=== PATIENT | female | born 1980 | race Caucasian/White ===

== ENCOUNTER 2017-10-14 13:25 | Emergency (ER) | payer BC ==
[2017-10-14 13:46] VITALS: BP 120/67
--- NOTE | 2017-10-14 13:56 | ED Physician Documentation ---
General Adult - HISTORIAN Historian: patient - HPI Stated Complaint: Cough/Aches Chief Complaint: Cough/ Upper Respiratory Additional Information: Patient has had some URI symptoms 6 days ago. Seemed to be getting better then started to have coughing fits. Has been slightly productive of yellow phlegm , no blood noted. Feels a burning sensation in chest. Has started to have some body aches. Feels like she has been running a fever. No lung problems. Further Comments: no - ROS CONST: denies: fever, chills CVS/RESP: chest pain, cough GI/: denies: abdominal pain, vomiting, nausea, diarrhea MS/SKIN/LYMPH: none NEURO/PSYCH: denies: headache - PAST HX Past History: other (depression) Allergies/Adverse Reactions: Allergies Allergy/AdvReac Type Severity Reaction Status Date / Time amoxicillin Allergy Rash Verified 10/14/17 13:46 cephalexin monohydrate Allergy Rash Verified 10/14/17 13:46 [From Keflex] ciprofloxacin [From Cipro] Allergy Rash Verified 10/14/17 13:46 ciprofloxacin HCl Allergy Rash Verified 10/14/17 13:46 [From Cipro] penicillin G Allergy Verified 10/14/17 13:46 promethazine HCl Allergy Verified 10/14/17 13:46 [From Phenergan] Home Medications: Ambulatory Orders Medication Instructions Recorded Desvenlafaxine Succinate [Pristiq 100 mg PO DAILY u2 05/26/15 Er] Ranitidine HCl [Zantac] 150 mg PO BID u2 05/26/15 Clonazepam 0.5 mg PO PRN PRN 30 Days #90 09/17/17 Oseltamivir Phosphate [Tamiflu] 75 mg PO BID #10 capsule 10/14/17 - SOCIAL HX Smoking History: greater than 1 pack/day Alcohol Use: none Drug Use: none - FAMILY HX Family History: No - VITAL SIGNS Vital Signs: Vital Signs Temp Pulse Resp BP Pulse Ox 96.7 F L 89 19 120/67 95 10/14/17 13:30 10/14/17 13:30 10/14/17 13:30 10/14/17 13:30 10/14/17 13:30 General Adult Physical Exam - PHYSICAL EXAM GENERAL APPEARANCE: no distress EENT: eye inspection normal, ENT inspection normal, pharynx normal, no signs of dehydration NECK: normal inspection, thyroid normal, supple. No: lymphadenopathy, stiff neck RESPIRATORY: no resp distress, chest non-tender, breath sounds normal. No: wheezes, rales CVS: reg rate & rhythm, heart sounds normal, equal pulses, no murmur, no gallop ABDOMEN: soft, no organomegaly SKIN: warm/dry, normal color EXTREMITIES: non-tender NEURO: oriented X3 Discharge Clincal Impression: Influenza B Referrals: Primary Doctor,No [Primary Care Provider] - 2 Days Additional Instructions: Take Tamiflu as directed. Drink a lot of fluids. Get plenty of rest. Cover your mouth when coughing. Have person in your household to wash their hands frequently. Condition: Stable Disposition: 01 HOME, SELF-CARE Palliative/Comfort Care: Palliative Care Decision to Admit: NO Date of Decison to Admit: 10/14/17 Decision Time: 14:02
== END 2017-10-14 14:12 | disposition home or self-care (01) ==
LOC: ED 13:25
DX: J11.1 Influenza due to unidentified influenza virus with other respiratory manifestations (principal); F17.210 Nicotine dependence, cigarettes, uncomplicated
CPT/HCPCS: 87400; 99282

== ENCOUNTER 2017-10-25 11:59 | Emergency (ER) | payer BC ==
[2017-10-25 12:14] VITALS: BP 109/66
--- NOTE | 2017-10-25 12:20 | ED Physician Documentation ---
General Adult - HISTORIAN Historian: patient - HPI Stated Complaint: Diarrhea Chief Complaint: Nausea,Vomiting,Diarrhea Onset: days ago (3) Timing: still present Severity: mild Further Comments: yes (states she started to have abdominal cramps and diarrhea since midnight . She has had Tamiflu and Azithromycin in last week . She states she had the diarrhea (which is not unusal she feels she has IBS) but she had "straight blood stool" x 1 .) Last known Well Code/Unknown Code: Unknown - ROS CONST: fever, recent illness MS/SKIN/LYMPH: denies: rash NEURO/PSYCH: denies: headache, fainting, dizziness - PAST HX Past History: none Surgeries/Procedures: none Immunizations: UTD Allergies/Adverse Reactions: Allergies Allergy/AdvReac Type Severity Reaction Status Date / Time amoxicillin Allergy Rash Verified 10/14/17 13:46 cephalexin monohydrate Allergy Rash Verified 10/14/17 13:46 [From Keflex] ciprofloxacin [From Cipro] Allergy Rash Verified 10/14/17 13:46 ciprofloxacin HCl Allergy Rash Verified 10/14/17 13:46 [From Cipro] codeine Allergy Verified 10/25/17 12:14 erythromycin base Allergy Verified 10/25/17 12:14 penicillin G Allergy Verified 10/14/17 13:46 promethazine HCl Allergy Verified 10/14/17 13:46 [From Phenergan] Home Medications: Ambulatory Orders Medication Instructions Recorded Azithromycin [Zithromax] 250 mg PO DAILY 10/25/17 Benzonatate [Tessalon Perles] 100 mg PO PRN PRN 10/25/17 Clonazepam [Clonazepam] 1 mg PO PRN PRN 10/25/17 Desvenlafaxine [Khedezla] 100 mg PO DAILY 10/25/17 Oseltamivir Phosphate [Tamiflu] 75 mg PO DAILY 10/25/17 - SOCIAL HX Smoking History: cigarettes Alcohol Use: none Drug Use: none - FAMILY HX Family History: No - VITAL SIGNS Vital Signs: Vital Signs Temp Pulse Resp BP Pulse Ox 97.1 F L 70 18 109/66 96 10/25/17 11:59 10/25/17 11:59 10/25/17 11:59 10/25/17 11:59 10/25/17 11:59 - REVIEWED ASSESSMENTS Nursing Assessment Reviewed: Yes Vitals Reviewed: Yes General Adult Physical Exam - PHYSICAL EXAM GENERAL APPEARANCE: no distress EENT: eye inspection normal NECK: normal inspection RESPIRATORY: no resp distress, chest non-tender, breath sounds normal CVS: reg rate & rhythm, heart sounds normal, equal pulses, no murmur ABDOMEN: soft, normal bowel sounds, no distension, non-tender BACK: normal inspection SKIN: warm/dry, normal color EXTREMITIES: non-tender, normal range of motion NEURO: oriented X3, CN's nml as tested, motor nml, sensation nml Discharge Clincal Impression: Diarrhea Qualifiers: Diarrhea type: unspecified type Qualified Code(s): R19.7 - Diarrhea, unspecified Referrals: Primary Doctor,No [Primary Care Provider] - 2 Days Comments: stool sample kit sent home Increase fluids Monitor stool Return to ER or PCP for any concerns Zofran 4 mg every 8 hours as needed for nausea Condition: Stable Decision to Admit: NO Date of Decison to Admit: 10/25/17 Decision Time: 12:29
== END 2017-10-25 12:40 ==
LOC: ED 11:59
DX: R19.7 Diarrhea, unspecified (principal)
CPT/HCPCS: 99282

== ENCOUNTER 2017-10-28 10:02 | Outpatient (CLI) | payer BC ==
[2017-10-28 10:15] LABS: BASOPHILS % 0.5 (0.0-1.5); EOSINOPHILS % 1.6 % (0.0-6.8); MEAN CORPUSCULAR HEMOGLOBIN 25.9 pg (28.0-34.0); MEAN CORPUSCULAR VOLUME 86.3 fl (80.0-100.0); MONOCYTES % 3.7 % (0.0-11.0); NEUTROPHILS # 6.1 # k/uL (1.4-7.7)
[2017-10-28 10:46] LABS: eGFR (African) > 60; eGFR (Non-African) > 60
== END 2017-10-28 10:03 ==
LOC: LAB 10:02
PROVIDERS: ATTEND Physician Assistant
DX: K92.1 Melena (principal); R19.7 Diarrhea, unspecified; R63.4 Abnormal weight loss
CPT/HCPCS: 36415; 80053; 85025; 87177; 87329; 87493

== ENCOUNTER 2017-11-20 08:51 | Outpatient (CLI) | payer BC | END 2017-11-20 08:52 | LOC: OUT 08:51 | PROVIDERS: ATTEND Colon & Rectal Surgery | DX: K21.9 Gastro-esophageal reflux disease without esophagitis (principal); F41.8 Other specified anxiety disorders | CPT/HCPCS: 99213 ==

== ENCOUNTER 2018-06-22 08:04 | Emergency (ER) | payer BC, OTHER ==
[2018-06-22 08:28] VITALS: BP 104/81
--- NOTE | 2018-06-22 08:38 | ED Physician Documentation ---
General Adult - HISTORIAN Historian: patient - HPI Stated Complaint: right facial abcess Chief Complaint: General Adult Additional Information: "Always" has a knot on the right side of her face, but for two days it has gotten larger and sorer with some redness. She is afraid of eye involvement. She also has "always present" sinus congestion that has been worse for a week with a wet cough and green sputum. Took some left over clindamycin for two days w/o relief. Post nasal drip. ContiNues to smoke 1/2 PPD for 20 years. No other modifying factors or associated signs. - ROS CONST: no problems - PAST HX Past History: other (chronic sinusitis) Allergies/Adverse Reactions: Allergies Allergy/AdvReac Type Severity Reaction Status Date / Time amoxicillin Allergy Rash Verified 10/14/17 13:46 cephalexin monohydrate Allergy Rash Verified 10/14/17 13:46 [From Keflex] ciprofloxacin [From Cipro] Allergy Rash Verified 10/14/17 13:46 ciprofloxacin HCl Allergy Rash Verified 10/14/17 13:46 [From Cipro] codeine Allergy Verified 10/25/17 12:14 erythromycin base Allergy Verified 10/25/17 12:14 penicillin G Allergy Verified 10/14/17 13:46 promethazine HCl Allergy Verified 10/14/17 13:46 [From Phenergan] Home Medications: Ambulatory Orders Medication Instructions Recorded Clonazepam 1 mg PO PRN PRN 10/25/17 Azithromycin [Zithromax] 250 mg PO DAILY #6 tablet 06/22/18 Desvenlafaxine Fumarate 100 mg PO DAILY 06/22/18 [Desvenlafaxine Fumarate ER] Dicyclomine HCl 10 mg PO TID PRN 06/22/18 Esomeprazole Magnesium [Nexium] 40 mg PO BID 06/22/18 Loratadine [Claritin] 10 mg PO DAILY #30 tablet 06/22/18 predniSONE [Deltasone] 20 mg PO QD #7 tablet 06/22/18 - SOCIAL HX Smoking History: cigarettes - FAMILY HX Family History: No - VITAL SIGNS Vital Signs: Vital Signs Temp Pulse Resp BP Pulse Ox 98.3 F 85 16 104/81 98 06/22/18 08:25 06/22/18 08:25 06/22/18 08:25 06/22/18 08:25 09/24/18 08:25 - REVIEWED ASSESSMENTS Nursing Assessment Reviewed: Yes Vitals Reviewed: Yes General Adult Physical Exam - PHYSICAL EXAM GENERAL APPEARANCE: mild distress EENT: eye inspection normal, ENT inspection normal (many missing teeth), pharynx normal (but with post nasal drip), no signs of dehydration, other (1 cm diameter indurated area jus tanterior to right ear, with mild erythema. Tender to touch. No fluctuance.) NECK: normal inspection. No: lymphadenopathy RESPIRATORY: no resp distress, breath sounds normal, wheezes (slight end expiratory) CVS: reg rate & rhythm, heart sounds normal BACK: normal inspection SKIN: warm/dry, normal color (except as above) EXTREMITIES: normal range of motion (gait and stance), no evidence of injury NEURO: CN's nml as tested, motor nml, sensation nml Discharge Clincal Impression: Pimples Chronic sinusitis Qualifiers: Sinusitis location: unspecified location Qualified Code(s): J32.9 - Chronic sinusitis, unspecified Prescriptions: Azithromycin [Zithromax] 250 mg PO DAILY #6 tablet Loratadine [Claritin] 10 mg PO DAILY #30 tablet predniSONE [Deltasone] 20 mg PO QD #7 tablet Referrals: Aaron Woods PA [Primary Care Provider] - 2 Days Condition: Good Disposition: 01 HOME, SELF-CARE Decision to Admit: NO Decision Time: 08:36
== END 2018-06-22 08:39 | disposition home or self-care (01) ==
LOC: ED 08:04
DX: J32.9 Chronic sinusitis, unspecified (principal); L70.9 Acne, unspecified